=== PATIENT | female | born 1980 | race Caucasian/White ===

== ENCOUNTER 2020-05-08 17:21 | Emergency (ER) | payer MEDICARE, MEDICAID ==
[~2020-05-08] VITALS: Ht 165.1 cm; Wt 104.3 kg
[2020-05-08] MEDS ORDERED: CLONAZEPAM 0.50.5 M1 PO (17:42)
[2020-05-08] MEDS ORDERED: BACTRIM DS TAB1 EAC1 PO (17:42)
[2020-05-08] MEDS ORDERED: TAPAZOLE5 MG PO (17:42)
[2020-05-08] MEDS ORDERED: HYDROXYZINE HCL10 M2 PO (17:42)
[2020-05-08] MEDS ORDERED: ABILIFY10 MG PO (17:42)
[2020-05-08] MEDS ORDERED: DOXYCYCLINE 10100 M2 PO (18:04)
[2020-05-08 18:22] VITALS: BP 140/77
== END 2020-05-08 18:22 | disposition home or self-care (01) ==
LOC: M.ERS 17:21
DX: L02.413 Cutaneous abscess of right upper limb (principal); L02.414 Cutaneous abscess of left upper limb; F19.10 Other psychoactive substance abuse, uncomplicated; Z88.1 Allergy status to other antibiotic agents; Z88.8 Allergy status to other drugs, medicaments and biological substances; Z90.711 Acquired absence of uterus with remaining cervical stump; Z86.14 Personal history of Methicillin resistant Staphylococcus aureus infection

== ENCOUNTER 2020-08-12 17:17 | Inpatient (IN) | payer MEDICARE, MEDICAID ==
[~2020-08-12] VITALS: Ht 165.1 cm; Wt 120.8 kg
[~2020-08-12 17:17] MED LIST: ABILIFY10 MG PO; BACTRIM DS TAB1 EAC1 PO; CLONAZEPAM 0.50.5 M1 PO; DOXYCYCLINE 10100 M2 PO; HYDROXYZINE HCL10 M2 PO; TAPAZOLE5 MG PO
[2020-08-12 17:28] VITALS: BP 124/80
[2020-08-12 19:27] LABS: RDW-CV 14.4 % (10.5-14.5)
[2020-08-12 19:29] LABS: HEMATOCRIT 36.4 % (37.0-47.0); HEMOGLOBIN 12.3 gm/dL (12.0-15.0); MCH 29.3 pg (26.0-34.0); MCHC 33.8 g/dL (28.0-37.0); MCV 86.6 fL (80.0-100.0); MPV 8.1 fl. (7.2-11.1); NUCLEATED RBCS 0 /100WBC; PLATELET COUNT* 266 thou/uL (150-400); WBC 19.4 thou/uL (4.0-11.0)
[2020-08-12 19:32] LABS: CALCIUM 8.9 mg/dL (8.5-10.1); POTASSIUM 3.2 mmol/L (3.5-5.1)
[2020-08-12 19:37] LABS: ALBUMIN 2.8 g/dL (3.4-5.0); TOTAL BILIRUBIN 0.9 mg/dL (<0.1-1.0); TOTAL PROTEIN 7.3 g/dL (6.4-8.2)
[2020-08-12 19:55] VITALS: BP 91/68
[2020-08-12 20:04] LABS: ABSOLUTE LYMPHOCYTES 2.3 thou/uL (0.8-5.3); ABSOLUTE MONOCYTES 1.2 thou/uL (0.0-1.2); ABSOLUTE NEUTROPHILS 15.9 thou/uL (1.6-8.1)
[2020-08-12 20:07] LABS: PLATELET ESTIMATE ADEQUATE
[2020-08-12 20:08] LABS: CLUMPED PLTS RARE
[2020-08-12 20:09] LABS: LARGE PLATELETS RARE
[2020-08-12 20:36] VITALS: BP 102/58
[2020-08-12 20:45] LABS: URINE BILIRUBIN NEGATIVE (Negative); URINE BLOOD NEGATIVE (Negative); URINE CLARITY CLEAR; URINE COLOR YELLOW; URINE GLUCOSE-RANDOM NEGATIVE (Negative); URINE KETONES NEGATIVE (Negative); URINE LEUKOCYTES-REFLEX NEGATIVE (Negative); URINE NITRITE-REFLEX NEGATIVE (Negative); URINE PROTEIN NEGATIVE (Negative)
[2020-08-12 20:52] LABS: AMP/METHAMP POSITIVE (Negative); BARBITURATES Negative (Negative); BENZODIAZEPINES Negative (Negative); COCAINE Negative (Negative); METHADONE Negative (Negative); OPIATES POSITIVE (Negative); PCP Negative (Negative); THC Negative (Negative)
[2020-08-12] MEDS ORDERED: ABILIFY20 MG PO (21:02)
[2020-08-12] MEDS ORDERED: KLONOPIN1 MG PO (21:03)
[2020-08-13 01:18] VITALS: BP 98/51
[2020-08-13 04:52] VITALS: BP 107/61
--- NOTE | 2020-08-13 06:57 | NUR ---
REPORT RECIEVED FROM ER. PT ORIENTED TO ROOM, CALL LIGHT SHOWN. FALL AGREEMENT WENT OVER, PT STATED UNDERSTANDING. IV PATENT, FLUIDS INFUISNG. ADMISSION DOCUMENTED. PICTURES OF WOUNDS TAKEN. PT OBSERVED WITH A LITTLE BAG IN HER BRA, WHEN ASKED WHAT IT IS, SHE THREW IT IN THE TOILET AND SAT ON THE TOILET, WHEN ASKED TO STAND UP, SHE FLUSHED THE TOILET AND STATED "ITS NOT METH". WHEN I ASKED HER A LITTLE LATER WHAT IT WAS, SHE STATED IT WAS "CRUSHED UP SUBAXONE THAT I GOT FROM MY HEROIN DEALER TO HELP ME QUIT HEROIN". DR AND NURSING PLASTIC MAKER NOTIFIED. NURSING PLASTIC MAKER ASKED SECURITY TO SEARCH PTS BELONGINGS. HOME MEDICATIONS WERE FOUND AND TAKEN TO PHARMACY, AND 2 USED NEEDLES WERE FOUNDS AND DISPOSED OF. PAIN MEDICATIONS GIVEN TO PT PER E-MAR WITH RELIEF. FALL PRECAUTIONS IN PLACE. NICOTINE PATCH ORDERED PER PT REQUEST. 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 WILL CONTINUE WITH PLAN OF CARE.
[2020-08-13 08:00] VITALS: BP 136/63
--- NOTE | 2020-08-13 11:56 | NUR ---
RECEIVED REPORT AROUND 0715. ASSUMED CARE. VS AND ASSESSMENT CHARTED. IV INTACT RIGHT JUGULAR. PT LYING IN BED. MEDS GIVEN PER MAY. PT ANXIOUS THIS AM. DR SOLIS TALKED TO PT. PT GOOD NOW. LEFT LEG RED, SWOLLEN DUE TO CELLULITIS. PAIN AT THAT SITE. CALL LIGHT WITH IN REACH. WILL CONTINUE TO MONITOR.
[2020-08-13 12:28] LABS: CALCIUM 8.8 mg/dL (8.5-10.1); CREATININE 0.8 mg/dL (0.6-1.3); POTASSIUM 3.5 mmol/L (3.5-5.1)
[2020-08-13 12:31] LABS: MAGNESIUM 2.2 mg/dL (1.8-2.4); PHOSPHORUS* 2.9 mg/dL (2.5-4.9)
--- NOTE | 2020-08-13 13:08 | NUR ---
PT STATED "I JUST WANT TO GO HOME" TOLD PT SHE CAN LEAVE AGAINST MEDICAL ADVISE. TOLD PT THE RISKS OF DOING SO. PT AGREED. SIGNED PAPER. PUT IN CHAIR. IV TAKEN OUT. HEART MONITOR OFF. HOME MEDS GIVEN TO PT. NOTIFIED. PT LEFT UNIT VIA WHEEL CHAIR WIHT ALL BELONGINGS AND NURSING STAFF.
== END 2020-08-13 13:08 | disposition left against medical advice (07) | DRG 603 ==
LOC: M.ERS 17:17 → M.TBA-ER 17:47 → M.2W 20:24
PROVIDERS: Family Medicine; Physician Assistant; ADMIT Internal Medicine; ATTEND Internal Medicine
DX: L03.116 Cellulitis of left lower limb (principal); E87.1 Hypo-osmolality and hyponatremia; F15.20 Other stimulant dependence, uncomplicated; R65.10 Systemic inflammatory response syndrome (SIRS) of non-infectious origin without acute organ dysfunction; F43.10 Post-traumatic stress disorder, unspecified; F41.1 Generalized anxiety disorder; E87.6 Hypokalemia; Z20.822 Contact with and (suspected) exposure to COVID-19; Z53.21 Procedure and treatment not carried out due to patient leaving prior to being seen by health care provider; Z79.899 Other long term (current) drug therapy; Z90.711 Acquired absence of uterus with remaining cervical stump; Z88.1 Allergy status to other antibiotic agents; Z88.8 Allergy status to other drugs, medicaments and biological substances

== ENCOUNTER 2020-10-06 19:42 | Emergency (ER) | payer MEDICARE, MEDICAID ==
[~2020-10-06] VITALS: Ht 165.1 cm; Wt 104.3 kg
[~2020-10-06 19:42] MED LIST changes: +ABILIFY20 MG PO; +KLONOPIN1 MG PO
[2020-10-06] MEDS ORDERED: DOXYCYCLINE 10100 MG PO (20:26)
[2020-10-06] MEDS ORDERED: CENTANY30 GM TOP (20:26)
[2020-10-06 20:50] VITALS: BP 121/70
== END 2020-10-06 20:50 | disposition home or self-care (01) ==
LOC: M.ERS 19:42
DX: S61.402A Unspecified open wound of left hand, initial encounter (principal); S61.401A Unspecified open wound of right hand, initial encounter; Z90.711 Acquired absence of uterus with remaining cervical stump; Z86.14 Personal history of Methicillin resistant Staphylococcus aureus infection; Z86.19 Personal history of other infectious and parasitic diseases; X58.XXXA Exposure to other specified factors, initial encounter; Y93.89 Activity, other specified; Y92.89 Other specified places as the place of occurrence of the external cause; Y99.8 Other external cause status